=== PATIENT | male | born 1975 ===

== ENCOUNTER 2018-06-04 14:21 | Emergency (ER) | payer OTHER ==
[2018-06-04 14:30] VITALS: BP 128/75; PULSE 61; RESP 18; TEMP 97.6; O2SAT 97
--- NOTE | 2018-06-04 14:48 | C.PDOC ---
History Of Present Illness Patient is a 42 year old male with no past medical history who presents with a foreign body in his left ear. He was using a Qtip in his left ear this morning, and the cotton remained inside his left ear canal. He complains of mild discomfort, otherwise has no complaints. He has no right ear complaints. Remaining review of systems was negative. PMD: Dr. Walton PMHx/SurgHx/FamHx/SocHx: denies Allergies: NKDA Meds: none Chief Complaint (Nursing): ENT Problem Past Medical History Vital Signs: Last Vital Signs Temp 97.6 F 06/04/18 14:29 Pulse 61 06/04/18 14:29 Resp 18 06/04/18 14:29 BP 128/75 06/04/18 14:29 Pulse Ox 97 06/04/18 14:29 Family History: States: No Known Family Hx - Social History Hx Alcohol Use: No Hx Substance Use: No - Immunization History Hx Tetanus Toxoid Vaccination: No Hx Influenza Vaccination: No Hx Pneumococcal Vaccination: No Review Of Systems Constitutional: Negative for: Fever, Chills, Weakness Eyes: Negative for: Pain, Vision Change ENT: Positive for: Other (admits to irritation due to cotton inside left ear canal; denies ear pain, discharge, swelling, Jaw pain). Negative for: Ear Pain, Ear Discharge, Throat Pain, Throat Swelling Skin: Negative for: Rash, Lesions Physical Exam - Physical Exam Appears: Well, Non-toxic, No Acute Distress Skin: Normal Color, Warm, Dry Head: Atraumatic, Normacephalic, No Tenderness, No Swelling Ear(s): Right: Normal, Bilateral: Other (Right- normal, no erythema, foreign body, TM intact; Left- cotton foreign body present in canal, no erythema, no discharge, TM intact) Lymphatic: No Adenopathy (no cervical adenopathy) ED Course And Treatment O2 Sat by Pulse Oximetry: 97 Procedure: Blank - Time Time Performed: 14:45 - Time Out Time Out: Side verified, Site verified - Procedure Procedure:: Foreign body removed intact from Left ear with sterile alligator forceps - Performed by: Performed by:: Attending physician - Indications Indications(s):: Foreign body in left ear canal - Location Location: Left, Ear - Description Discription of Procedure: 06/04/18 - Result Result: Successful Medical Decision Making Medical Decision Making: Foreign body (cotton from Qtip) visualized with otoscope. Removed intact cotton tip with alligator forceps. TM intact, no erythema, discharge, or swelling. Patient advised to avoid inserting qtip or any object in to the ear canal. Patient is stable and clear for discharge to home. Disposition - Disposition Referrals: Jim Reaves MD [Medical Doctor] - Disposition: HOME/ ROUTINE Disposition Time: 14:47 Condition: STABLE Additional Instructions: Please refrain from inserting qtips or other objects into ear canal. Please follow up with your PMD in 1-2 days. If symptoms worsen or you have signs/symptoms of infection (fevers, redness, discharge, ear pain), return to the nearest ER. Instructions: Removing Objects Stuck in the Ear Forms: [facility] (Persian) - Clinical Impression Clinical Impression: Foreign body in ear
== END 2018-06-04 15:09 | disposition home or self-care (01) ==
LOC: C.ER 14:21
DX: T16.2XXA Foreign body in left ear, initial encounter (principal)